=== PATIENT | male | born 1995 | race Caucasian/White ===

== ENCOUNTER 2017-01-12 19:35 | Emergency (ER) | payer SELFPAY | END 2017-01-12 22:02 | disposition home or self-care (01) | LOC: ER 19:35 | PROC: 0HCFXZZ Extirpation of Matter from Right Hand Skin, External Approach (ICD-10-PCS; principal; 2017-01-12) | DX: S16.1XXA Strain of muscle, fascia and tendon at neck level, initial encounter (principal); S60.511A Abrasion of right hand, initial encounter; V49.9XXA Car occupant (driver) (passenger) injured in unspecified traffic accident, initial encounter | CPT/HCPCS: 71020; 72050; 73130-LT; 90471; 90714; 93005; 99285 ==